=== PATIENT | female | born 1945 | race Caucasian/White ===

== ENCOUNTER → 2018-08-18 | Outpatient (CLI) | payer MEDICARE, OTHER ==
[~2018-08-18] MED LIST: ADULT LOW DOSE81 MG PO; ADVAIR 100-501 EACH INH; ADVAIR 250-501 EACH INH; ADVAIR HFA 45-218 GM IH; ALBUTEROL2.5 MG/0.5 INH; APAP/CODEINE ELI5 M1 PO; ATORVASTATIN CA40 MG PO; BACTRIM DS TAB1 EACH PO; BONIVA150 MG PO; CERTAGEN SOL1 BO1 OR; FLAGYL500 MG PO; GEODON20 MG PO; GEODON40 MG PO; KEFLEX500 MG PO; LEXAPRO20 MG PO; LISINOPRIL-HCT1 EAC1 PO; LORAZEPAM 1 MG T1 M1 PO; MIRAPEX0.125 MG PO; NEURONTIN 300300 M1 PO; OYST-CAL-500500 MG PO; PHENERGAN 25 MG25 M1 PO; PREDNISONE50 MG PO; PRILOSEC 20 MG20 MG PO; PROAIR HFA8.5 GM INH; PROBIOTIC1 EAC1 PO; SINGULAIR 10 MG10 M1 PO; TAMIFLU PO; VIACTIV SOFT C1 EACH PO; VITAMIN E 400I400 I1 PO; WELLBUTRIN SR150 MG PO; XANAX 0.25 MG0.25 MG PO; ZETIA10 MG PO
== END ==
LOC: M.RAD 15:48
DX: I10 Essential (primary) hypertension (principal); J98.4 Other disorders of lung; I70.0 Atherosclerosis of aorta; R05 Cough

== ENCOUNTER → 2019-04-25 | Outpatient (CLI) | payer MEDICARE, OTHER | LOC: M.RAD 17:17 | DX: R07.81 Pleurodynia (principal) ==

== ENCOUNTER → 2019-04-26 | Outpatient (CLI) | payer MEDICARE, OTHER ==
[2019-04-26 12:14] LABS: ABSOLUTE BASOPHILS 0.1 thou/uL (0.0-0.2); ABSOLUTE EOSINOPHILS 0.2 thou/uL (0.0-0.7); ABSOLUTE MONOCYTES 0.7 thou/uL (0.0-1.2); ABSOLUTE NEUTROPHILS 5.8 thou/uL (1.6-8.1); BASOPHILS 1.3 %; EOSINOPHILS 2.2 %; HEMATOCRIT 37.7 % (37.0-47.0); HEMOGLOBIN 12.2 gm/dL (12.0-15.0); LYMPHOCYTES 22.4 %; MCH 27.6 pg (26.0-34.0); MCHC 32.3 g/dL (28.0-37.0); MCV 85.3 fL (80.0-100.0); MONOCYTES 7.5 %; NUCLEATED RBCS 0 /100WBC; PLATELET COUNT* 473 thou/uL (150-400); POLYS 66.6 %; RBC 4.42 mil/uL (4.20-5.00); RDW-CV 15.3 % (10.5-14.5); WBC 8.7 thou/uL (4.0-11.0)
[2019-04-26 12:24] LABS: ALBUMIN 3.5 g/dL (3.4-5.0); CALCIUM 9.4 mg/dL (8.5-10.1); CREATININE 1.1 mg/dL (0.6-1.3); POTASSIUM 3.2 mmol/L (3.5-5.1); TOTAL BILIRUBIN 0.6 mg/dL (<0.1-1.0); TOTAL PROTEIN 7.9 g/dL (6.4-8.2)
[2019-04-26 13:16] LABS: ESR (SEDRATE) 67 mm/hr (0-30)
[2019-04-26 21:05] LABS: IgA 214 mg/dL (64-422); IgG 808 mg/dL (700-1600); IgM 91 mg/dL (26-217)
[2019-04-28 13:08] LABS: ANA INTERPRETATION Negative (Negative); ANTI-SSA 0.2 AI (0.0-0.9)
== END ==
LOC: M.ULTRA 10:50
PROVIDERS: Family Medicine
DX: K76.0 Fatty (change of) liver, not elsewhere classified (principal); R10.11 Right upper quadrant pain; G62.9 Polyneuropathy, unspecified; R26.9 Unspecified abnormalities of gait and mobility